=== PATIENT | female | born 1945 | race Caucasian/White ===

== ENCOUNTER 2018-11-03 01:35 | Inpatient (IN) | payer MEDICARE, MEDICAID ==
[~2018-11-03] VITALS: Ht 160 cm; Wt 72.7 kg
[~2018-11-03 01:35] MED LIST: ADV50100 IH; ALBU18HF2 IH; CARCD120C PO; INSU100V36 SQ; LANTUS SQ; POTA20TA19 PO
[2018-11-03] MEDS ORDERED: amiodarone 150mg/dext, iso-os 100 ML IV ONE (01:50)
[2018-11-03] MEDS ORDERED: magnesium 2GM in 50ml NS 50 ML IV ONE (01:50)
[2018-11-03] MEDS ORDERED: normal saline 1000ML IV soln IVB ONE (01:50)
[2018-11-03] MEDS ORDERED: fentaNYL/PF 50MCG/1 ML 2ML syringe IV ONE (01:55)
[2018-11-03 02:07] LABS: BASOPHILS # (AUTO) 0.1 X10'3 (0-0.2); BASOPHILS % (AUTO) 0.5 % (0-1); EOSINOPHILS # (AUTO) 0.4 X10'3 (0-0.9); EOSINOPHILS % (AUTO) 3.7 % (0-6); HEMATOCRIT 41.5 % (35.0-45.0); HEMOGLOBIN 13.7 g/dl (12.0-16.0); LYMPHOCYTES # (AUTO) 3.9 X10'3 (1.1-4.8); LYMPHOCYTES % (AUTO) 34.2 % (21-51); MEAN CORPUSCULAR HEMOGLOBIN 29.2 PG (27.0-31.0); MEAN CORPUSCULAR HGB CONC 33.1 % (33.0-36.5); MEAN CORPUSCULAR VOLUME 88.1 FL (78-98); MEAN PLATELET VOLUME 9.9 FL (7.4-10.4); MONOCYTES # (AUTO) 0.6 X10'3 (0-0.9); MONOCYTES % (AUTO) 5.1 % (2-12); NEUTROPHILS # (AUTO) 6.5 X10'3 (1.8-7.7); NEUTROPHILS % (AUTO) 56.5 % (42-75); PLATELET COUNT 271 X10'3 (140-440); WHITE BLOOD COUNT 11.5 X10'3 (4.5-11.0)
[2018-11-03 02:15] LABS: INR 1.1 INR; PARTIAL THROMBOPLASTIN TIME 27 SECONDS (22-32); PROTHROMBIN TIME 11.2 SECONDS (9.0-12.0)
[2018-11-03 02:23] LABS: ALANINE AMINOTRANSFERASE 19 U/L (12-78); ALBUMIN 3.2 G/DL (3.4-5.0); ALBUMIN/GLOBULIN RATIO 0.7 (1.1-1.5); ALKALINE PHOSPHATASE 99 IU/L (46-116); ANION GAP 20 (8-16); ASPARTATE AMINO TRANSFERASE 20 U/L (10-37); BILIRUBIN,TOTAL 0.4 MG/DL (0.1-1.0); BLOOD UREA NITROGEN 22 MG/DL (7-18); CALCIUM 10.1 MG/DL (8.5-10.1); CHLORIDE 98 MMOL/L (99-107); CREATININE 1.57 MG/DL (0.40-0.90); GLUCOSE 267 MG/DL (70-104); LIPASE 295 U/L (73-393); SODIUM 136 MMOL/L (135-145); TOTAL CARBON DIOXIDE 17.8 MMOL/L (24-32); TOTAL PROTEIN 7.7 G/DL (6.4-8.2); eGFR 32 ML/MIN
[2018-11-03 02:29] LABS: POTASSIUM 2.5 MMOL/L (3.5-5.1)
[2018-11-03] MEDS ORDERED: potassium 10mEq/100ml NS w/LIDOcaine (10mg/bag) IV ONE (02:35)
[2018-11-03] MEDS ORDERED: potassium Cl 20 mEq SR tablet PO ONE (02:35)
[2018-11-03] MEDS ORDERED: iohexol 350MG/ML 100ml bottle IV ONE (02:43)
[2018-11-03] MEDS ORDERED: CefTRIAXone/D5W-Rocephin 1gm 50 ML IV ONE (02:45)
[2018-11-03] MEDS ORDERED: normal saline 1000ml 1,000 ML IV ONE ×2 (03:20→09:25)
[2018-11-03] MEDS ORDERED: furosemide 10 MG/1 ML 10ml inj IV ONE (03:20)
[2018-11-03] MEDS ORDERED: POTASSIUM CL 10MEQ ER TABLETS (03:37)
[2018-11-03] MEDS ORDERED: FUROSEMIDE 40 MG (03:37)
[2018-11-03] MEDS ORDERED: METFORMIN 500MG TABLETS (03:37)
[2018-11-03] MEDS ORDERED: VENTOLIN HFA INH W/DOS CTR 200 (03:37)
[2018-11-03] MEDS ORDERED: DILTIAZEM (03:37)
[2018-11-03] MEDS ORDERED: LORazepam 2 mg/ml vial IV ONE ×2 (04:20→04:35)
[2018-11-03] MEDS ORDERED: HYDROmorphone 1 mg/ml syringe IV ONE (04:20)
[2018-11-03] MEDS ORDERED: bisacodyl 10mg suppository rectal RC PRN (05:10)
[2018-11-03] MEDS ORDERED: metoclopramide 5 mg/ml inj IV PRN (05:10)
[2018-11-03] MEDS ORDERED: diphenhydrAMINE 25mg capsule PO PRN (05:10)
[2018-11-03] MEDS ORDERED: ondansetron/PF 4mg/2ml inj IV PRN (05:10)
[2018-11-03] MEDS ORDERED: morphine 10mg/0.5ml (conc. morphine) oral syringe PO PRN (05:10)
[2018-11-03] MEDS ORDERED: magnesium hydroxide 30ml (MOM) UD suspension PO PRN (05:10)
[2018-11-03] MEDS ORDERED: LORazepam 2 mg/ml vial IV PRN (05:10)
[2018-11-03] MEDS ORDERED: acetaminophen 650mg rectal suppository RC PRN (05:10)
[2018-11-03] MEDS ORDERED: acetaminophen 325mg tablet PO PRN ×3 (05:10)
[2018-11-03] MEDS ORDERED: HYDROmorphone 1 mg/ml syringe IV PRN ×2 (05:10)
[2018-11-03] MEDS ORDERED: diphenhydrAMINE 50 mg/ml inj IV PRN (05:10)
[2018-11-03] MEDS ORDERED: mag hydrox/Alum hydrox/simeth 30ml oral suspension PO PRN (05:10)
[2018-11-03] MEDS ORDERED: docusate sod 100mg capsule PO SCH ×2 (08:00)
[2018-11-03] MEDS ORDERED: albuterol 2.5 MG/3 ML nebule NEB SCH (08:00)
[2018-11-03] MEDS ORDERED: sennosides/docusate sodium tablet PO SCH (08:00)
[2018-11-03 08:30] VITALS: BP 138/70
[2018-11-03] MEDS ORDERED: heparin 25,000 UNIT/250ml bag 250 ML IV SCH (09:31)
[2018-11-03] MEDS ORDERED: heparin 10,000 units/1 ML INJ IV ONE (09:35)
[2018-11-03] MEDS ORDERED: heparin 10,000 units/1 ML INJ IV PRN (09:35)
[2018-11-03] MEDS ORDERED: MESSAGE TO NURSING PO NR (10:00)
[2018-11-03] MEDS ORDERED: normal saline 1000ml 1,000 ML IV SCH (10:50)
[2018-11-03 11:05] LABS: BASOPHILS % (AUTO) 0 % (0-1); EOSINOPHILS # (AUTO) 0.2 X10'3 (0-0.9); EOSINOPHILS % (AUTO) 1.2 % (0-6); HEMATOCRIT 37.9 % (35.0-45.0); HEMOGLOBIN 12.1 g/dl (12.0-16.0); LYMPHOCYTES # (AUTO) 1.4 X10'3 (1.1-4.8); LYMPHOCYTES % (AUTO) 8.5 % (21-51); MEAN CORPUSCULAR VOLUME 90.7 FL (78-98); MEAN PLATELET VOLUME 8.3 FL (7.4-10.4); MONOCYTES # (AUTO) 0.8 X10'3 (0-0.9); MONOCYTES % (AUTO) 5.2 % (2-12); NEUTROPHILS # (AUTO) 13.8 X10'3 (1.8-7.7); NEUTROPHILS % (AUTO) 85.1 % (42-75); PLATELET COUNT 131 X10'3 (140-440); RED BLOOD COUNT 4.18 X10'6 (4.20-5.60); RED CELL DISTRIBUTION WIDTH 13.6 % (11.5-14.5); WHITE BLOOD COUNT 16.3 X10'3 (4.5-11.0)
[2018-11-03 12:25] LABS: ALANINE AMINOTRANSFERASE 137 U/L (12-78); ALBUMIN 2.1 G/DL (3.4-5.0); ALBUMIN/GLOBULIN RATIO 0.6 (1.1-1.5); ALKALINE PHOSPHATASE 103 IU/L (46-116); ANION GAP 30 (8-16); ASPARTATE AMINO TRANSFERASE 278 U/L (10-37); BILIRUBIN,TOTAL 0.5 MG/DL (0.1-1.0); BLOOD UREA NITROGEN 20 MG/DL (7-18); BUN/CREATININE RATIO 8.7 (6.6-38.0); CALCIUM 8.4 MG/DL (8.5-10.1); CHLORIDE 103 MMOL/L (99-107); CREATININE 2.29 MG/DL (0.40-0.90); GLUCOSE 320 MG/DL (70-104); POTASSIUM 4.6 MMOL/L (3.5-5.1); SODIUM 139 MMOL/L (135-145); TOTAL PROTEIN 5.5 G/DL (6.4-8.2); TROPONIN I 0.52 NG/ML (0.0-0.05); eGFR 21 ML/MIN
[2018-11-03 12:26] LABS: TOTAL CARBON DIOXIDE 5.8 MMOL/L (24-32)
[2018-11-03] MEDS ORDERED: temazepam 15mg capsule PO PRN (21:00)
== END 2018-11-03 23:39 | disposition expired | DRG 871 ==
LOC: ER 01:35 → ED HOLD 05:10 → ORTHO 4S 08:30
PROVIDERS: ADMIT Family Medicine; ATTEND Internal Medicine
PROC: B32T1ZZ Computerized Tomography (CT Scan) of Left Pulmonary Artery using Low Osmolar Contrast (ICD-10-PCS; principal; 2018-11-03)
PROC: B3201ZZ Computerized Tomography (CT Scan) of Thoracic Aorta using Low Osmolar Contrast (ICD-10-PCS; 2018-11-03)
PROC: B32S1ZZ Computerized Tomography (CT Scan) of Right Pulmonary Artery using Low Osmolar Contrast (ICD-10-PCS; 2018-11-03)
PROC: B4201ZZ Computerized Tomography (CT Scan) of Abdominal Aorta using Low Osmolar Contrast (ICD-10-PCS; 2018-11-03)
PROC: B4241ZZ Computerized Tomography (CT Scan) of Superior Mesenteric Artery using Low Osmolar Contrast (ICD-10-PCS; 2018-11-03)
PROC: B4281ZZ Computerized Tomography (CT Scan) of Bilateral Renal Arteries using Low Osmolar Contrast (ICD-10-PCS; 2018-11-03)
PROC: B42C1ZZ Computerized Tomography (CT Scan) of Pelvic Arteries using Low Osmolar Contrast (ICD-10-PCS; 2018-11-03)
PROC: B42H1ZZ Computerized Tomography (CT Scan) of Bilateral Lower Extremity Arteries using Low Osmolar Contrast (ICD-10-PCS; 2018-11-03)
PROC: B4211ZZ Computerized Tomography (CT Scan) of Celiac Artery using Low Osmolar Contrast (ICD-10-PCS; 2018-11-03)
DX: A41.9 Sepsis, unspecified organism (principal); I50.33 Acute on chronic diastolic (congestive) heart failure; K55.019 Acute (reversible) ischemia of small intestine, extent unspecified; K55.069 Acute infarction of intestine, part and extent unspecified; I77.76 Dissection of artery of upper extremity; E87.2 Acidosis; I13.0 Hypertensive heart and chronic kidney disease with heart failure and stage 1 through stage 4 chronic kidney disease, or unspecified chronic kidney disease; I74.09 Other arterial embolism and thrombosis of abdominal aorta; N28.0 Ischemia and infarction of kidney; D73.5 Infarction of spleen; E11.51 Type 2 diabetes mellitus with diabetic peripheral angiopathy without gangrene; E87.6 Hypokalemia; I48.91 Unspecified atrial fibrillation; I51.3 Intracardiac thrombosis, not elsewhere classified; E11.22 Type 2 diabetes mellitus with diabetic chronic kidney disease; N18.9 Chronic kidney disease, unspecified; R09.02 Hypoxemia; E11.65 Type 2 diabetes mellitus with hyperglycemia; Z51.5 Encounter for palliative care; Z66 Do not resuscitate; Z91.012 Allergy to eggs; Z91.040 Latex allergy status; Z88.5 Allergy status to narcotic agent; Z88.0 Allergy status to penicillin; Z88.7 Allergy status to serum and vaccine; Z88.8 Allergy status to other drugs, medicaments and biological substances; Z91.018 Allergy to other foods; Z79.899 Other long term (current) drug therapy; Z79.4 Long term (current) use of insulin
CPT/HCPCS: 36415; 71045; 71275; 74174; 74176; 80053; 83605; 83690; 83735; 83880; 84484; 85025; 85610; 85730; 87070; 93005; 96365; 96366; 96368; 96375; 99291; G0378; J0282; J0696; J1170; J1644; J1940; J2060; J3010; J3475; J3480; J7030; Q9967